=== PATIENT | female | born 1980 | race African-American/Black ===

== ENCOUNTER 2020-01-16 18:05 | Emergency (ER) | payer BC, SELFPAY ==
[2020-01-16 18:35] VITALS: BP 123/82; PULSE 65; RESP 18; TEMP 36.4; O2SAT 100
--- NOTE | 2020-01-16 19:05 | ED.EAR ---
HPI - Ear Problem General Chief complaint: Ear Stated complaint: Ear Pain Time Seen by Provider: 01/16/20 18:56 Source: patient and RN notes reviewed Mode of arrival: ambulatory Limitations: no limitations History of Present Illness HPI Narrative: Patient presents today complaining of right ear pain that started towards the beginning of December. She initially saw her PCP who diagnosed her with otitis media and she was placed on doxycycline. Symptoms did not improve and she was seen last week at a [facility] clinic. At that time she was told she had a bulging eardrum and was placed on a course of Augmentin. She has a last dose of Augmentin tomorrow and states symptoms have not improved. She currently rates her ear pain 05/29 and reports it is intermittent. She has been occasionally using Sudafed, daily Flonase and Zyrtec, ibuprofen, and a heating pad. MD Complaint: ear pain Related Data Home Medications Medication Instructions Recorded Confirmed Probiotic 01/16/20 Vitamin D3 01/16/20 amoxicillin-pot clavulanate tablet 01/16/20 aspirin 01/16/20 atorvastatin 01/16/20 empagliflozin [Jardiance] mg 01/16/20 lisinopril-hydrochlorothiazide tablet 01/16/20 metoprolol tartrate 01/16/20 nitroglycerin mg 01/16/20 norethindrone-e.estradiol-iron [Lo tablet 01/16/20 Loestrin Fe] potassium chloride 01/16/20 sertraline mg 01/16/20 ticagrelor [Brilinta] mg 01/16/20 Allergies Allergy/AdvReac Type Severity Reaction Status Date / Time CEPHALEXIN MONOHYDRATE Allergy Intermediate hives Uncoded 08/27/19 16:13 Review of Systems Review of Systems: Narrative: CONSTITUTIONAL: Denies body aches, fever, chills, or sweats. EYES: Denies visual changes, redness, or discharge. ENT: Denies rhinorrhea, congestion, sore throat. + Right ear pain CARDIOVASCULAR: Denies chest pain, palpitations, or edema. RESPIRATORY: Denies cough or dyspnea. GASTROINTESTINAL: Denies abdominal pain, nausea, vomiting, or diarrhea. GENITOURINARY: Denies dysuria or hematuria. SKIN: Denies rash, itching, or wounds. MUSCULOSKELETAL: Denies back pain, joint pain, or myalgia. NEUROLOGIC: Denies headache, numbness, tingling, or weakness. PSYCH: Denies depression or anxiety. [facility] Family History Family History (Updated 02/24/17 @ 23:56 by DOCTOR UNKNOWN) Father Hypertension Mother Family history of diabetes mellitus in first degree relative Family history of lupus erythematosus, Onset Age: 48 Patient's mother is Social History Social History Smoking status: Former smoker Second hand tobacco smoke exposure: No Smoking end date: 11/20/02 Alcohol intake: current Comments At time of signature, I have reviewed and agree with nursing past medical, surgical, social and family history unless otherwise noted. Please see nursing chart for further information. There is no relevant family history pertinent to the presenting complaint Exam Narrative: Exam Narrative: GENERAL: Well-appearing, well-nourished, and in no acute distress. HEAD: Normocephalic, atraumatic. EYES: EOMI. No redness or drainage. Conjunctivae normal. ENT: Mucous membranes pink and moist. Nares clear. No rhinorrhea. TMs normal bilaterally. Patient does have some erythema of the right ear canal, movement tenderness, and tragal tenderness of the right ear. Throat normal. Uvula midline. NECK: Normal AROM. Supple. No lymphadenopathy. CHEST: No respiratory distress. MUSCULOSKELETAL: No bony tenderness. EXTREMITIES: Normal range of motion. No edema. SKIN: Warm, dry, no rash. NEURO: No focal deficits. Alert and oriented x3. Gait steady. PSYCH: Normal affect. No signs of depression or anxiety. Course Vital Signs Vital signs: Vital Signs Temperature 97.6 F 01/16/20 18:35 Pulse Rate 65 01/16/20 18:35 Respiratory Rate 18 01/16/20 18:35 Blood Pressure 123/82 01/16/20 18:35 Pulse Oximetry 100 01/16/20 18:35 Temperature
== END 2020-01-16 19:12 | disposition home or self-care (01) ==
PROVIDERS: Emergency Provider Nurse Practitioner; PCP Internal Medicine
DX: H60.501 Unspecified acute noninfective otitis externa, right ear (principal); Z87.891 Personal history of nicotine dependence; I25.10 Atherosclerotic heart disease of native coronary artery without angina pectoris; Z95.5 Presence of coronary angioplasty implant and graft; E78.00 Pure hypercholesterolemia, unspecified; I10 Essential (primary) hypertension; E11.9 Type 2 diabetes mellitus without complications
CPT/HCPCS: 99213; G0463

== ENCOUNTER → 2020-08-21 11:20 | Outpatient (CLI) | payer BC, SELFPAY ==
--- NOTE | ~2020-08-21 | MM_ITS ---
EXAMINATION: MM screening amanda BI w anneliese HISTORY: Screening mammogram TECHNIQUE: Craniocaudal and mediolateral oblique 3-D tomosynthesis images were obtained and synthetic 2-D images were generated. CAD analysis was submitted and interpreted. COMPARISON: No prior mammogram is available for comparison at this institution. BREAST PARENCHYMAL COMPOSITION: There are scattered areas of fibroglandular density. FINDINGS: There is no evidence of suspicious mass, calcification, or architectural distortion to sugg est malignancy in either breast. There has been no suspicious interval change. IMPRESSION: 1. No mammographic evidence of malignancy. 2. Recommend routine screening mammography in one year. BI-RADS Category 1: Negative Reviewed, dictated and finalized at location B.
== END ==
PROVIDERS: PCP Internal Medicine; Visit Provider Obstetrics & Gynecology
DX: Z12.31 Encounter for screening mammogram for malignant neoplasm of breast (principal)
CPT/HCPCS: 77063; 77067

== ENCOUNTER → 2023-02-01 16:21 | Outpatient (CLI) | payer OTHER, SELFPAY ==
--- NOTE | ~2023-02-01 | MM_ITS ---
EXAMINATION: MM screening amanda BI w anneliese HISTORY: Screening mammogram TECHNIQUE: Craniocaudal and mediolateral oblique 3-D tomosynthesis images were obtained and synthetic 2-D images were generated. CAD analysis was submitted and interpreted. COMPARISON: 08/21/2020 bilateral screening mammogram BREAST PARENCHYMAL COMPOSITION: There are scattered areas of fibroglandular density. FINDINGS: There is no evidence of suspicious mass, calcification, or architectural distortion to sugg est malignancy in either breast. There has been no suspicious interval change. IMPRESSION: 1. No mammographic evidence of malignancy. 2. Recommend routine screening mammography in one year. BI-RADS Category 1: Negative Reviewed, dictated and finalized at location [facility].
== END ==
PROVIDERS: PCP Internal Medicine; Visit Provider Obstetrics & Gynecology
DX: Z12.31 Encounter for screening mammogram for malignant neoplasm of breast (principal)
CPT/HCPCS: 77063; 77067

== ENCOUNTER 2024-09-17 13:34 | Outpatient (CLI) | payer OTHER, SELFPAY ==
--- NOTE | ~2024-09-17 | MMUS_ITS ---
EXAMINATION: MM diagnostic amanda BI w anneliese, US breast RT limited HISTORY: Right breast lump TECHNIQUE: 3-D tomosynthesis images of the breasts were performed and synthetic 2-D images were gener ated. CAD analysis was submitted and interpreted. High resolution limited right breast ultrasound was performed. COMPARISON: 02/01/2023, 08/21/2020 BREAST PARENCHYMAL COMPOSITION:Dense: The breasts are heterogeneously dense, which may obscure small masses. FINDINGS: MAMMOGRAPHIC FINDINGS: There is suggestion of 1 cm low-density ovoid mass at the right inframammary fold region at the area of palpable concern. Parenchymal pattern of both breasts is otherwise unchanged. ULTRASOUND: At the 4:00 position right breast, 12 cm from nipple, at the area of probable concern, there is a 1.4 x 0.5 x 1.5 cm lobulated superficial mass just beneath the skin surface. This lesion is wider than t all, with mild posterior through transmission. IMPRESSION: 1.4 x 0.5 x 1.5 cm lobulated superficial mass at the right inframammary fold region, as detailed abo ve. This lesion is indeterminate, and ultrasound-guided biopsy should be considered to establish hist ologic diagnosis. Six-month follow-up ultrasound to reassess would be a potential alternative conside ration. BI-RADS category 4, suspicious findings. Reviewed, dictated and finalized at [facility]. IMPRESSION: 1.4 x 0.5 x 1.5 cm lobulated superficial mass at the right inframammary fold r egion, as detailed above. This lesion is indeterminate, and ultrasound-guided b iopsy should be considered to establish histologic diagnosis. Six-month follow- up ultrasound to reassess would be a potential alternative consideration. BI-RADS category 4, suspicious findings.
== END 2024-09-17 13:35 | disposition home or self-care (01) ==
LOC: ANHIMG 13:35
PROVIDERS: PCP Internal Medicine; Visit Provider Obstetrics & Gynecology
DX: N63.0 Unspecified lump in unspecified breast (principal); R92.8 Other abnormal and inconclusive findings on diagnostic imaging of breast
CPT/HCPCS: 76642; 77062; 77066; G0279